=== PATIENT | male | born 1980 | race Caucasian/White ===

== ENCOUNTER 2022-04-06 12:26 | Emergency (ER) | payer OTHER, SELFPAY ==
[2022-04-06 12:35] VITALS: BP 143/103; PULSE 78; RESP 16; TEMP 36.7; O2SAT 98
--- NOTE | 2022-04-06 12:53 | ED_ITS ---
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 his friend told him that he needed a tetanus shot today. He is generally healthy, does not know when his last tetanus shot was, but we checked and it is actually 2009. No range of motion deficit of the hand, he simply cut on metal did not get metal he believes in his hand. Related Data Previous Rx's Medication Instructions Recorded cephalexin 500 mg capsule 500 mg PO QID #20 caps 04/06/22 Allergies Allergy/AdvReac Type Severity Reaction Status Date / Time Sulfa (Sulfonamide Allergy Unknown Verified 04/06/22 13:01 Antibiotics) Review of Systems Narrative: Negative for diabetes, healing issues, bleeding problems. 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 Range of motion of the thumb extension flexion and sensation is normal Const: Vital Signs, click to edit/add: Vital Signs - 24 hr 04/06/22 12:35 Temperature 98.0 F Pulse Rate [Pulse Oximeter] 78 Respiratory Rate 16 Blood Pressure [Ri ght Upper Arm] 143/103 H Pulse Oximetry 98 Oxygen Delivery Me thod Room Air Course Vital Signs Vital signs: Initial Vital Signs Temperature 98.0 F 04/06/22 12:35 Temperature Source Temporal Artery Scan 04/06/22 12:35 Pulse Rate 78 04/06/22 12:35 Pulse Rhythm 04/06/22 12:35 Pulse Strength 3+ Normal 04/06/22 12:35 Respiratory Rate 16 04/06/22 12:35 Blood Pressure 143/103 H 04/06/22 12:35 Blood Pressure Mean 116 04/06/22 12:35 Blood Pressure Position Supine 04/06/22 12:35 Pulse Oximetry 98 04/06/22 12:35 Oxygen Delivery Method 04/06/22 12:35 Vital Signs Temperature 98.0 F 04/06/22 12:35 Pulse Rate 78 04/06/22 12:35 Respiratory Rate 16 04/06/22 12:35 Blood Pressure 143/103 H 04/06/22 12:35 Pulse Oximetry 98 04/06/22 12:35 Oxygen Delivery Method 04/06/22 12:35 Temperature 98.0 F 04/06/22 12:35 Pulse Rate 78 04/06/22 12:35 Respiratory Rate 16 04/06/22 12:35 Blood Pressure 143/103 H 04/06/22 12:35 Pulse Oximetry 98 04/06/22 12:35 Oxygen Delivery Method 04/06/22 12:35 Medical Decision Making MDM Narrative Medical decision making narrative: Patient has a small laceration to the lateral aspect of his corner of his nail bed thumb but does not appear deep, at this point given it is over 12 hours old I would not so this shot, would soak it good it soak it well and copious sterile solution now, given Keflex 500 orally, and updated Tdap. Will keep the Keflex 5 00 q.i.d. x5 days, keep covered for 48 hours, then may soak off the dressing and cover with a bandage, recommend off work for the next 5 days or so do that the fact that he uses hands and that this should not get dirty or the risk infection goes up should be used. He was comfortable this will follow up as directed, return to primary care as needed, return to ED problems or concerns or any infectious symptoms. Discharge Plan Discharge Clinical Impression: Laceration Patient Disposition: Home, Self-Care Condition: Improved Additional Instructions: Keep the dressing on for the next 24 hours, then may soak it off in soapy water, may cover the area with a bandage. Keflex 4 times a day for 5 days, updated tetanus today return as needed. Trying keep the hand clean for the next 4-5 days until healed Activity Level: Light activity Activity Detail: Light use of the left hand Discharge Diet: Regular Prescriptions: New cephalexin 500 mg capsule 500 mg PO QID Qty: 20 0RF Stand Alone Forms: [employer] Info Instructions
[2022-04-06] MEDS: cephALEXin 500 MG CAPSULE PO (13:04)
[2022-04-06] MEDS: TETANUS/DIPHTH/PERTUSSIS 0.5 ML SYRINGE IM (13:04)
--- NOTE | 2022-04-06 13:14 | PC.NURSE ---
Patient was discharged. Thumb was soaked in saline and chlorhexidine. Bacitracin, telfa, and gauze was applied to wound. Prescription for cephlex sent into [facility]. Tdap and cephlex given to patient here. Work note for 1 day given to patient. All questions answered and left via ambulatory.
== END 2022-04-06 13:23 | disposition home or self-care (01) ==
LOC: ED 13:06
PROVIDERS: Emergency Provider Family Medicine
DX: S61.012A Laceration without foreign body of left thumb without damage to nail, initial encounter (principal); W26.9XXA Contact with unspecified sharp object(s), initial encounter; Y93.9 Activity, unspecified; Y92.9 Unspecified place or not applicable; Y99.9 Unspecified external cause status
CPT/HCPCS: 90471; 90715; 99283; A9270

== ENCOUNTER 2022-11-16 16:00 | Outpatient (RCR) | payer OTHER, SELFPAY | END 2023-01-17 11:08 | disposition home or self-care (01) | PROVIDERS: PCP Family Medicine; Visit Provider Family Medicine | DX: S39.011D Strain of muscle, fascia and tendon of abdomen, subsequent encounter (principal); S16.1XXD Strain of muscle, fascia and tendon at neck level, subsequent encounter; Z51.89 Encounter for other specified aftercare; M54.2 Cervicalgia | CPT/HCPCS: 97110; 97140; 97161 ==